=== PATIENT | female | born 1955 | race Caucasian/White ===

== ENCOUNTER 2021-03-26 17:31 | Emergency (ER) | payer OTHER, MEDICARE ==
[~2021-03-26] VITALS: Ht 149.9 cm; Wt 63.5 kg
[~2021-03-26 17:31] MED LIST: ASPIRIN EC81 M1; ASPIRIN325 PO; COSOPT EYE DROPS5 ML; EFFEXOR XR150 MG; HUMALOG100 UNIT/1; LIPITOR10 MG; NEXIUM40 MG PO; PRINIVIL10 MG; PROVIGIL PO
[2021-03-26 17:37] VITALS: BP 137/58
[2021-03-26] MEDS ORDERED: CEPHALEXIN500 MG PO (17:58)
== END 2021-03-26 18:22 | disposition home or self-care (01) ==
LOC: ER 17:31
DX: S60.466A Insect bite (nonvenomous) of right little finger, initial encounter (principal); E11.9 Type 2 diabetes mellitus without complications; K21.9 Gastro-esophageal reflux disease without esophagitis; Z79.4 Long term (current) use of insulin; Z79.82 Long term (current) use of aspirin; Z79.899 Other long term (current) drug therapy; W57.XXXA Bitten or stung by nonvenomous insect and other nonvenomous arthropods, initial encounter; Y93.89 Activity, other specified; Y92.89 Other specified places as the place of occurrence of the external cause; Y99.8 Other external cause status